=== PATIENT | male | born 1970 | race Caucasian/White ===

== ENCOUNTER 2021-08-16 13:07 | Emergency (ER) | payer SELFPAY ==
[~2021-08-16] VITALS: Ht 180 cm; Wt 54.4 kg
[2021-08-16] MEDS ORDERED: NS IV 1000 ML 1,000 ML IV SCH (13:45)
[2021-08-16 13:51] LABS: BASOPHILS % (AUTO) 0 % (0-10); EOSINOPHILS % (AUTO) 0 % (0-10); HEMATOCRIT 44 % (40-54); LYMPHOCYTES # (AUTO) 1.3 10^3/uL (1.0-4.0); LYMPHOCYTES % (AUTO) 10 % (12-44); MEAN CORPUSCULAR HEMOGLOBIN 33 pg (25-34); MEAN CORPUSCULAR HGB CONC 36 g/dL (32-36); MEAN CORPUSCULAR VOLUME 92 fL (80-99); MEAN PLATELET VOLUME 9.3 fL (9.0-12.2); MONOCYTES # (AUTO) 0.8 10^3/uL (0.0-1.0); MONOCYTES % (AUTO) 6 % (0-12); NEUTROPHILS # (AUTO) 11.7 10^3/uL (1.8-7.8); NEUTROPHILS % (AUTO) 84 % (42-75); PLATELET COUNT 209 10^3/uL (130-400); WHITE BLOOD COUNT 13.9 10^3/uL (4.3-11.0)
--- NOTE | 2021-08-16 13:56 | ED General ---
General Chief Complaint: Lower Extremity Stated Complaint: L LEG NUMBNESS Nursing Triage Note: PT TO RM 5 VIA WC W C/O LEFT LEG NUMBNESS DOWN TO HIS TOES SX 08/05/2021. PT DENIES INJURY OR PAIN AT THIS TIME. Source of Information: Patient Exam Limitations: No Limitations History of Present Illness Date Seen by Provider: Aug 16, 2021 Time Seen by Provider: 13:30 Initial Comments Patient is a 50-year-old male who presents to the emergency department today with a chief complaint of generalized weakness, decreased exercise tolerance, poor appetite, excessive alcohol drinking, insomnia and new onset left foot drop. Patient states that he has been fighting insomnia for 3 or 4 years which subsequently led to him drinking excessive amounts of alcohol. In this amount of time he has generally declined in his overall health. Has not seen a doctor in at least 4 years. Has a history of ulcers. Biggest complaint today is that he woke up about a week and a half ago and had "foot drop" of the left foot. He denies any pain in the left leg or back pain. No reported injuries. States that he has numbness in a pattern of distribution down the left anterior lower leg from the knee to the dorsum of the foot. Denies any problems with incontinence of bowel or bladder. No saddle anesthesia. No numbness above the knee to the hip. Last drink was this morning, the patient prefers beer over hard liquor. No fevers or chills. Occasional shortness of breath. Chronic nausea. No black or bloody stools. Patient is very tearful with discussion of his general medical health. All other review of systems reviewed and negative except as stated. Timing/Duration: 1 Week Severity: Moderate Associated Systoms: Nausea/Vomiting (chronic nausea) Allergies and Home Medications Allergies Coded Allergies: No Known Drug Allergies (Unverified , 08/16/21) Patient Home Medication List Home Medication List Reviewed: Yes Trazodone HCl (Trazodone HCl) 50 Mg Tablet, 50 MG PO HS Prescribed by: MARGARET PIERRE on 08/16/21 1537 Review of Systems Review of Systems Constitutional: see HPI, malaise, weakness EENTM: no symptoms reported Respiratory: short of breath (occasional) Cardiovascular: no symptoms reported Gastrointestinal: loss of appetite, nausea Genitourinary: no symptoms reported Musculoskeletal: muscle weakness (left foot) Skin: no symptoms reported Psychiatric/Neurological: Anxiety, Depressed, Emotional Problems, Numbness, Paresthesia, Weakness (left foot) All Other Systems Reviewed Negative Unless Noted: Yes Past Acylucs-Rnmwxy-Hjqcpa Hx Patient Social History Tobacco Use?: Yes Tobacco type used: Cigarettes Smoking Status: Current Everyday Smoker Use of E-Cig and/or Vaping dev: No Substance use?: No Additional substance use comme: HX MARIJUANA USE Alcohol Use?: Yes Alcohol type: Beer Pt feels they are or have been: No Immunizations Up To Date First/Initial COVID19 Vaccinat: JANUARY 2021 Second COVID19 Vaccination Leonel: MARCH 2021 COVID19 Vaccine Poultryman: MODERNA Past Medical History Surgery/Hospitalization HX: DX W [facility] VIA ENDOSCOPY Physical Exam Vital Signs Vital Signs - First Documented 08/16/21 13:13 Temp 36.8 Pulse 106 Resp 18 B/P (MAP) 131/92 (105) Pulse Ox 97 O2 Delivery Room Air Capillary Refill : Less Than 3 Seconds Height, Weight, BMI Height: '" Weight: lbs. oz. kg; 16.00 BMI Method: General Appearance: No Apparent Distress, Cachetic Eyes: Bilateral Eye Normal Inspection, Bilateral Eye PERRL, Bilateral Eye EOMI HEENT: PERRL/EOMI Neck: Full Range of Motion Respiratory: Lungs Clear, Normal Breath Sounds, No Accessory Muscle Use, No Respiratory Distress Cardiovascular: Regular Rate, Rhythm, Tachycardia Gastrointestinal: Normal Bowel Sounds, No Pulsatile Mass ((prominent aortic pulsations - patient is cachectic)), Soft, Tenderness (left groin/prc femur) Extremity: Normal Capillary Refill, Normal Inspection, No Pedal Edema Neurologic/Psychiatric: Alert, Oriented x3, Normal Mood/Affect, Motor Weakness (left foot dosriflexors), Other (tearful and sad) Skin: Normal Color, Warm/Dry Progress/Results/Core Measures Suspected Sepsis SIRS Temperature: Pulse: 106 Respiratory Rate: 18 Laboratory Tests 08/16/21 13:41: White Blood Count 13.9H Blood Pressure 131 /92 Mean: 105 Laboratory Tests 08/16/21 13:41: Creatinine 0.65, Platelet Count 209, Total Bilirubin 0.3 Results/Orders Lab Results Laboratory Tests Test 08/16/21 13:41 08/16/21 14:44 Range/Units White Blood Count 13.9 H 4.3-11.0 10^3/uL Red Blood Count 4.81 4.30-5.52 10^6/uL Hemoglobin 16.0 13.3-17.7 g/dL Hematocrit 44 40-54 % Mean Corpuscular Volume 92 80-99 fL Mean Corpuscular Hemoglobin 33 25-34 pg Mean Corpuscular Hemoglobin Concent 36 32-36 g/dL Red Cell Distribution Width 12.9 10.0-14.5 % Platelet Count 209 130-400 10^3/uL Mean Platelet Volume 9.3 9.0-12.2 fL Immature Granulocyte % (Auto) 0 % Neutrophils (%) (Auto) 84 H 42-75 % Lymphocytes (%) (Auto) 10 L 12-44 % Monocytes (%) (Auto) 6 0-12 % Eosinophils (%) (Auto) 0 0-10 % Basophils (%) (Auto) 0 0-10 % Neutrophils # (Auto) 11.7 H 1.8-7.8 10^3/uL Lymphocytes # (Auto) 1.3 1.0-4.0 10^3/uL Monocytes # (Auto) 0.8 0.0-1.0 10^3/uL Eosinophils # (Auto) 0.0 0.0-0.3 10^3/uL Basophils # (Auto) 0.0 0.0-0.1 10^3/uL Immature Granulocyte # (Auto) 0.1 0.0-0.1 10^3/uL Sodium Level 130 L 135-145 MMOL/L Potassium Level 3.4 L 3.6-5.0 MMOL/L Chloride Level 96 L 98-107 MMOL/L Carbon Dioxide Level 20 L 21-32 MMOL/L Anion Gap 14 5-14 MMOL/L Blood Urea Nitrogen 7 7-18 MG/DL Creatinine 0.65 0.60-1.30 MG/DL Estimat Glomerular Filtration Rate 129 BUN/Creatinine Ratio 11 Glucose Level 119 H 70-105 MG/DL Calcium Level 8.9 8.5-10.1 MG/DL Corrected Calcium 9.0 8.5-10.1 MG/DL Total Bilirubin 0.3 0.1-1.0 MG/DL Aspartate Amino Transf (AST/SGOT) 41 H 5-34 U/L Alanine Aminotransferase (ALT/SGPT) 31 0-55 U/L Alkaline Phosphatase 84 40-136 U/L Total Protein 7.2 6.4-8.2 GM/DL Albumin 3.9 3.2-4.5 GM/DL Serum Alcohol 144 H <10 MG/DL Urine Color YELLOW Urine Clarity CLEAR Urine pH 6.0 5-9 Urine Specific [place] 1.010 L 1.016-1.022 Urine Protein NEGATIVE NEGATIVE Urine Glucose (UA) NEGATIVE NEGATIVE Urine Ketones NEGATIVE NEGATIVE Urine Nitrite NEGATIVE NEGATIVE Urine Bilirubin NEGATIVE NEGATIVE Urine Urobilinogen 0.2 < = 1.0 MG/DL Urine Leukocyte Esterase NEGATIVE NEGATIVE Urine RBC (Auto) NEGATIVE NEGATIVE Urine RBC NONE /HPF Urine WBC NONE /HPF Urine Squamous Epithelial Cells RARE /HPF Urine Crystals NONE /LPF Urine Bacteria NEGATIVE /HPF Urine Casts NONE /LPF Urine Mucus NEGATIVE /LPF Urine Culture Indicated NO My Orders Orders - MARGARET PIERRE MD Ed Iv/Invasive Line Start (08/16/21 13:39) Cbc With Automated Diff (08/16/21 13:39) Comprehensive Metabolic Panel (08/16/21 13:39) Chest 1 View, Ap/Pa Only (08/16/21 13:39) Ua Culture If Indicated (08/16/21 13:39) Ns Iv 1000 Ml (Sodium Chloride 0.9%) (08/16/21 13:45) Alcohol (08/16/21 13:42) Thiamine Injection (Vitamin B-1 Injectio (08/17/21 09:00) Folic Acid Injection (Folic Acid Injecti (08/17/21 09:00) Ns Iv 1000 Ml (Sodi... W/Thiamine Inject (08/16/21 14:00) Vital Signs/I&O 08/16/21 13:13 Temp 36.8 Pulse 106 Resp 18 B/P (MAP) 131/92 (105) Pulse Ox 97 O2 Delivery Room Air Capillary Refill : Less Than 3 Seconds Blood Pressure Mean: 105 Progress Note : Time: 15:58 Progress Note Long discussion with the patient regarding follow-up. I have given him extensive contact information for [facility] at [place]. We were unable to obtain an AFO brace for his foot drop on the left so a short leg Ortho-Glass splint was fashioned to help him keep his foot dorsiflexed. He was given some online resources to be able to possibly order a more appropriate brace. I did give him contact information for Dr. Can as well. Strongly encouraged him to quit drinking alcohol. Recommended his trazodone be restarted for sleep at night. Also recommended [id number]-ece-gyvkeyn Prilosec to help with acid reduction in light of his history of ulcers. Gave him good return precautions. He and his brother verbalized understanding, are in agreement with the plan of care. All questions are sought and answered. Patient states that he feels better on discharge. Diagnostic Imaging Diagonstic Imaging: Xray Plain Films/CT/US/NM/MRI: chest Comments [facility] [place], [place] NAME: SALVATORE BALLESTEROS [facility] REC#: [id number] PT STATUS: REG ER : 1970 PHYSICIAN: MARGARET PIERRE MD ADMIT DATE: 08/16/21/ER Draft Date of Exam:08/16/21 CHEST 1 VIEW, AP/PA ONLY INDICATION: Weakness, nausea Upright portable chest shows normal heart size and vascularity. There is obstructive airway disease with no mass or infiltrate seen. There is no effusion or pneumothorax. There is air beneath the left hemidiaphragm which appears to be within a loop of bowel rather than free intraperitoneal air. IMPRESSION: COPD. No acute abnormality is seen. Dictated on workstation # [id number] Dict: 08/16/21 1433 Trans: 08/16/21 1435 CV [id number] Interpreted by: JOSELINE PEREZ MD Electronically signed by: Departure Impression Primary Impression: Foot drop, left Additional Impressions: Alcohol abuse Insomnia Qualified Codes: F10.982 - Alcohol use, unspecified with alcohol-induced sleep disorder Disposition: 01 HOME, SELF-CARE Condition: Stable Departure-Patient Inst. Decision time for Depature: 15:52 Referrals: NO,LOCAL PHYSICIAN (PCP) Primary Care Physician DANNY CAN MD Patient Instructions: Foot Drop, Insomnia (DC) Add. Discharge Instructions: I have sent a prescription to the [facility] pharmacy in [place] to refill your Trazodone for sleep. Stopping the alcohol may actually help you sleep better in the long run. You also need to start taking low dose Prilosec (generic equivalent Omeprazole) daily to help protect your stomach from Ulcers. Call [facility] for follow up medical care. I have put contact information for the Ortho doctor solar installation foreman for further evaluation of your foot drop. Or [facility] can help with referrals and further management and evaluation and treatment for this. Otherwise wear the "home made splint" we have fashioned for you to help keep your foot upright while walking. We have given you some paperwork for possibly ordering a more appropriate brace from a [employer] company online. [facility] Hours of Operation [facility] Friday-: 8:00 am-6:00 pm Friday: 8:00 am-5:00 pm Pharmacy Friday-Friday: 8:00 am-7:00 pm Friday: 8:00 am-3:00 pm You can call the pharmacy during these times at [phone]. All commercial insurance, Medicaid and Medicare accepted. Financial assistance available. We will treat everyone, regardless of ability to pay. CALL [phone] TO MAKE AN APPOINTMENT Scripts Trazodone HCl (Trazodone HCl) 50 Mg Tablet 50 MG PO HS, #30 TAB Prov: MARGARET PIERRE MD 08/16/21 MARGARET PIERRE MD Aug 16, 2021 13:56
[2021-08-16] MEDS ORDERED: NS IV NR (14:00)
[2021-08-16] MEDS ORDERED: THIAMINE IV NR (14:00)
[2021-08-16] MEDS ORDERED: FOLIC ACID IV NR (14:00)
[2021-08-16 14:01] LABS: ALBUMIN 3.9 GM/DL (3.2-4.5); POTASSIUM 3.4 MMOL/L (3.6-5.0)
[2021-08-16 14:02] LABS: CALCIUM 8.9 MG/DL (8.5-10.1)
[2021-08-16 14:04] LABS: TOTAL PROTEIN 7.2 GM/DL (6.4-8.2)
[2021-08-16 14:05] LABS: BILIRUBIN,TOTAL 0.3 MG/DL (0.1-1.0)
[2021-08-16 14:07] LABS: CREATININE SERUM 0.65 MG/DL (0.60-1.30)
--- NOTE | 2021-08-16 14:35 | Diagnostic Imaging Report ---
INDICATION: Weakness, nausea Upright portable chest shows normal heart size and vascularity. There is obstructive airway disease with no mass or infiltrate seen. There is no effusion or pneumothorax. There is air beneath the left hemidiaphragm which appears to be within a loop of bowel rather than free intraperitoneal air. IMPRESSION: COPD. No acute abnormality is seen. Dictated by: Dictated on workstation # [id number]
[2021-08-16 14:54] LABS: BILIRUBIN,URINE NEGATIVE (NEGATIVE); CLARITY,URINE CLEAR; COLOR,URINE YELLOW; GLUCOSE, URINE (UA) NEGATIVE (NEGATIVE); KETONES,URINE NEGATIVE (NEGATIVE); LEUKOCYTE ESTERASE ,URINE NEGATIVE (NEGATIVE); NITRITE,URINE NEGATIVE (NEGATIVE); PROTEIN,URINE NEGATIVE (NEGATIVE)
[2021-08-16 15:07] LABS: BACTERIA,URINE NEGATIVE /HPF; SQUAMOUS EPITHELIAL CELL,UR RARE /HPF
[2021-08-16] MEDS ORDERED: TRZ50T PO (15:37)
[2021-08-16 15:52] VITALS: BP 148/98
[2021-08-17] MEDS ORDERED: THIAMINE INJECTION 100 MG in NS (IVPB) 50 ML IV SCH (09:00)
[2021-08-17] MEDS ORDERED: FOLIC ACID INJECTION 1 MG in NS (IVPB) 50 ML IV SCH (09:00)
== END 2021-08-16 15:52 | disposition home or self-care (01) ==
LOC: ER 13:10
DX: M21.372 Foot drop, left foot (principal); F10.10 Alcohol abuse, uncomplicated; G47.00 Insomnia, unspecified; F17.210 Nicotine dependence, cigarettes, uncomplicated
CPT/HCPCS: 29515; 71045; 80053; 81000; 85025; 99284; G0480; 36415; 80320